=== PATIENT | male | born 1930 | race African-American/Black ===

== ENCOUNTER 2019-04-03 19:49 | Emergency (ER) | payer OTHER ==
[~2019-04-03] VITALS: Ht 172.7 cm; Wt 73.0 kg
[2019-04-03] MEDS ORDERED: SODIUM CHLORIDE 0.9% 1,000 ML IV ONE ×2 (21:09→22:45)
[2019-04-03 22:00] LABS: HEMATOCRIT. 42.7 % (42.0-52.0); HEMOGLOBIN. 13.9 g/dL (14.0-18.0); MEAN CORPUSCULAR HEMOGLOBIN 27.4 pg (28.0-32.0); MEAN CORPUSCULAR VOLUME 83.9 fL (80.0-94.0); MEAN PLATELET VOLUME 8.6 fl (7.4-10.4); PLATELET 305 x1000/uL (130-400); RED BLOOD CELL COUNT 5.09 mill/uL (4.7-6.1); RED CELL DISTRIBUTION WIDTH 16.1 % (11.6-14.6)
[2019-04-03 22:01] LABS: CHLORIDE 101 mEq/L (98-107)
[2019-04-03 22:09] LABS: PROTHROMBIN TIME 82.2 sec (9.6-11.0)
[2019-04-03 22:12] LABS: CREATINE KINASE 51 IU/L (39-308)
[2019-04-03 22:23] LABS: INR 8.8
[2019-04-03 22:36] LABS: PLATELET ESTIMATE NORMAL
[2019-04-03] MEDS ORDERED: LEVOFLOXACIN 750MG PREMIX 150 ML IV ONE (23:00)
[2019-04-03] MEDS ORDERED: ASPIRIN 325MG TABLET PO ONE (23:00)
[2019-04-03] MEDS ORDERED: SODIUM CHLORIDE 0.9% 500 ML IV ONE (23:00)
[2019-04-04 00:56] VITALS: BP 145/94
== END 2019-04-04 01:18 | disposition short-term general hospital (02) ==
LOC: ER 19:49
DX: E86.0 Dehydration (principal); N17.9 Acute kidney failure, unspecified; D72.829 Elevated white blood cell count, unspecified; R79.89 Other specified abnormal findings of blood chemistry; I10 Essential (primary) hypertension; Z85.9 Personal history of malignant neoplasm, unspecified
CPT/HCPCS: 36415; 70450; 71045; 80053; 82550; 82962; 83605; 84484; 85025; 85610; 87040; 93005; 96361; 96365; 99291; J1956; J7030; J7040